=== PATIENT | female | born 1950 | race American Indian/Alaskan Native ===

== ENCOUNTER 2017-10-26 11:06 | Emergency (ER) | payer MEDICARE ==
[2017-10-26 12:17] LABS: Basophils # (Auto) 0.1 K/mm3 (0.0-0.1); Basophils % (Auto) 1.1 % (0.0-1.8); Eosinophils # (Auto) 0.2 K/mm3 (0.0-0.4); Eosinophils % (Auto) 3.2 % (0.0-4.3); Hematocrit 33.3 % (30.3-42.9); Hemoglobin 10.8 gm/dl (10.1-14.3); Lymphocytes # (Auto) 1.9 K/mm3 (1.2-5.4); Lymphocytes % (Auto) 38.5 % (13.4-35.0); Mean Corpuscular HGB Conc 33 % (30-34); Mean Corpuscular Hemoglobin 26 pg (28-32); Mean Corpuscular Volume 79 fl (79-97); Monocytes # (Auto) 0.4 K/mm3 (0.0-0.8); Monocytes % (Auto) 8.7 % (0.0-7.3); Platelet Count 222 K/mm3 (140-440); Red Blood Count 4.21 M/mm3 (3.65-5.03); Red Cell Distribution Width 16.8 % (13.2-15.2)
[2017-10-26 12:26] LABS: INR 0.87 (0.87-1.13)
[2017-10-26 12:27] LABS: Partial Thromboplastin Time 30.8 Sec. (24.2-36.6)
[2017-10-26 12:39] LABS: Calcium 8.9 mg/dL (8.4-10.2)
--- NOTE | 2017-10-26 13:39 | Cat Scan Report ---
FINAL REPORT EXAM: CT HEAD/BRAIN WO CON HISTORY: gait unsteady and dizziness with HTN and headache TECHNIQUE: CT of the head was performed. No intravenous contrast was administered. PRIORS: None. FINDINGS: There is no evidence of intracranial hemorrhage. There is no edema, mass effect or midline shift. There are no abnormal extra-axial fluid collections. The ventricles are appropriate for brain volume. There is no skull fracture seen. The visualized aspects of the sinuses are clear. IMPRESSION: There is no acute intracranial abnormality identified.
[2017-10-26 13:57] LABS: Chol/HDL Ratio 3.81 %
[2017-10-26] MEDS ORDERED: CATAPRES ONE (14:21)
[2017-10-26] MEDS ORDERED: CATAPRES PO ONE (14:28)
[2017-10-26] MEDS ORDERED: NORCO 5/325 PO ONE (14:57)
[2017-10-26] MEDS ORDERED: ANTIVERT PO ONE (14:57)
--- NOTE | 2017-10-26 15:03 | Emergency Department Report ---
HPI - General Chief Complaint: High BP Time Seen by Provider: 10/26/17 14:42 - HPI HPI: Room 9 The patient is a 67-year-old female presenting with a chief complaint of headache and dizziness. The patient states for the past 2-3 days she's had a constant occipital headache addition to dizziness mostly with walking. The patient states she felt as though her blood pressures been elevated for the past 2 days. The patient is to nausea but denies vomiting. The patient states she drove to [place] from [place] 10/16/2017. Patient denies chest pain or shortness of breath Location: [See above] Duration: [See above] Quality: Dizziness Severity: [See above] Modifying factors: [see above] Context: [see above] Mode of transportation: [not driving] ED Past Medical Hx - Past Medical History Previous Medical History?: Yes Hx Hypertension: Yes Hx CVA: Yes (TIA) Hx Diabetes: Yes Hx Renal Disease: Yes (Stage 4 kidney disease) Hx Arthritis: Yes - Surgical History Past Surgical History?: Yes Additional Surgical History: x1, Pituitary tumor remval, Cystocele and rectocele repair , Hysterectomy - Family History Family history: no significant - Social History Smoking Status: Never Smoker Substance Use Type: None (denies illicit drug use), Alcohol (rarely) - Medications Home Medications: Home Medications Medication Instructions Recorded Confirmed Last Taken Type amLODIPine [Norvasc] 5 mg PO DAILY #30 tab 10/26/17 Unknown Rx ED Review of Systems ROS: Stated complaint: HIGH BP Other details as noted in HPI Physical Exam - Physical Exam Vital Signs: Vital Signs 10/26/17 10/26/17 10/26/17 11:45 14:29 14:32 Temperature 97.9 F 98.6 F Pulse Rate 66 73 73 Respiratory 18 18 Rate Blood Pressure 239/112 239/116 Blood Pressure 239/116 [Right] O2 Sat by Pulse 100 100 Oximetry Physical Exam: GENERAL: The patient is well-developed well-nourished female lying on stretcher not appearing to be in acute distress. [] HEENT: Normocephalic. Atraumatic. Extraocular motions are intact. Patient has moist mucous membranes. NECK: Supple. Trachea midline CHEST/LUNGS: Clear to auscultation. There is no respiratory distress noted. HEART/CARDIOVASCULAR: Regular. There is no tachycardia. There is no gallop rub or murmur. ABDOMEN: Abdomen is soft, nontender. Patient has normal bowel sounds. There is no abdominal distention. SKIN: There is no rash. There is no edema. There is no diaphoresis. NEURO: The patient is awake, alert, and oriented. The patient is cooperative. The patient has no focal neurologic deficits. The patient has normal speech. Cranial nerves II through XII grossly intact, no drift. Supervisor Claims 5+/5 bilaterally MUSCULOSKELETAL: There is no evidence of acute injury. ED Course Vital Signs 10/26/17 10/26/17 10/26/17 11:45 14:29 14:32 Temperature 97.9 F 98.6 F Pulse Rate 66 73 73 Respiratory 18 18 Rate Blood Pressure 239/112 239/116 Blood Pressure 239/116 [Right] O2 Sat by Pulse 100 100 Oximetry - Reevaluation(s) Reevaluation #1: 10/26/17 17:13 Patient improved ED Medical Decision Making - Lab Data Result diagrams: 10/26/17 11:55 10/26/17 11:55 - EKG Data -: EKG Interpreted by Me EKG shows normal: sinus rhythm Rate: normal - EKG Data When compared to previous EKG there are: previous EKG unavailable Interpretation: normal EKG - Radiology Data Radiology results: report reviewed (CT head, VQ scan), image reviewed (CT head, chest x-ray, VQ scan) interpreted by me: Chest x-ray-no focal infiltrates, no pneumothorax [address] [address] Cat Scan Report Signed Patient: SHANNAN HURLEY MR#: [id number] : 1950 Acct:[id number] Age/Sex: 67 / F ADM Date: 10/26/17 Loc: ED Attending Dr: Ordering Physician: ED MD ADILENE Date of Service: 10/26/17 Procedure(s): CT head/brain wo con Accession Number(s): [id number] cc: ED MD ADILENE FINAL REPORT EXAM: CT HEAD/BRAIN WO CON HISTORY: gait unsteady and dizziness with HTN and headache TECHNIQUE: CT of the head was performed. No intravenous contrast was administered. PRIORS: None. FINDINGS: There is no evidence of intracranial hemorrhage. There is no edema, mass effect or midline shift. There are no abnormal extra-axial fluid collections. The ventricles are appropriate for brain volume. There is no skull fracture seen. The visualized aspects of the sinuses are clear. IMPRESSION: There is no acute intracranial abnormality identified. Transcribed By: MEY Dictated By: WHITNEY WADE MD Electronically Authenticated By: WHITNEY WADE MD Signed Date/Time: 10/26/17 1333 DD/ 1333 TD/TT: 10/26/17 1333 [facility] [address] [place] [address] Nuclear Medicine Report Signed Patient: SHANNAN HURLEY MR#: [id number] : 1950 Acct:[id number] Age/Sex: 67 / F ADM Date: 10/26/17 Loc: ED Attending Dr: Ordering Physician: ELDER JACKSON MD Date of Service: 10/26/17 Procedure(s): NM lung scan perf/vent Accession Number(s): [id number] cc: ELDER JACKSON MD Ventilation/perfusion lung scan: Elevated d-dimer, dizziness. Upright posterior imaging during ventilation demonstrates normal distribution of radionuclide throughout both lungs. Mild retention of activity is identified at the left lung base on washout images. Perfusion imaging in multiple projections demonstrates a normal distribution of radionuclide. Impression: No evidence of embolus. Nonspecific focal retention of ventilation activity at left lung base. Transcribed By: AWA Dictated By: EZ RODRIGUEZ MD Electronically Authenticated By: EZ RODRIGUEZ MD Signed Date/Time: 10/26/17 1630 DD/ 1629 TD/TT: 10/26/17 1630 - Differential Diagnosis hypertensive urgency, vertigo, PE Critical care attestation.: If time is entered above; I have spent that time in minutes in the direct care of this critically ill patient, excluding procedure time. ED Disposition Clinical Impression: Hypertensive urgency, Headache, Chronic renal insufficiency Disposition: -01 TO HOME OR SELFCARE Is pt being admited?: No Does the pt Need Aspirin: No Condition: Stable Instructions: Hypertension (ED) Additional Instructions: Return to the emergency department immediately should you develop worsening symptoms, fever, inability to tolerate food or liquid or any other concerns. Prescriptions: amLODIPine [Norvasc] 5 mg PO DAILY #30 tab Referrals: your primary physician, Christel [Other] - B[facility] Time of Disposition: 17:15
--- NOTE | 2017-10-26 16:42 | Nuclear Medicine Report ---
Ventilation/perfusion lung scan: Elevated d-dimer, dizziness. Upright posterior imaging during ventilation demonstrates normal distribution of radionuclide throughout both lungs. Mild retention of activity is identified at the left lung base on washout images. Perfusion imaging in multiple projections demonstrates a normal distribution of radionuclide. Impression: No evidence of embolus. Nonspecific focal retention of ventilation activity at left lung base.
--- NOTE | 2017-10-26 16:56 | XRay Report ---
FINAL REPORT EXAM: XR CHEST 1V AP HISTORY: dizziness, elevated d-dimer TECHNIQUE: AP portable view of the chest PRIORS: None. FINDINGS: Lines, tubes, and devices: N/A Lungs and pleura: Trachea is normal in position. Lungs are clear of infiltrate, pleural effusion, vascular congestion, or pneumothorax. Cardiomediastinal silhouette: Cardiac and mediastinal silhouettes are unremarkable. Other: Bony structures are intact. IMPRESSION: No acute cardiopulmonary process seen.
[2017-10-26 17:33] VITALS: BP 143/75
== END 2017-10-26 17:58 | disposition home or self-care (01) ==
LOC: ED 11:06
DX: I16.0 Hypertensive urgency (principal); I12.9 Hypertensive chronic kidney disease with stage 1 through stage 4 chronic kidney disease, or unspecified chronic kidney disease; E11.22 Type 2 diabetes mellitus with diabetic chronic kidney disease; N18.4 Chronic kidney disease, stage 4 (severe); M19.90 Unspecified osteoarthritis, unspecified site; Z86.73 Personal history of transient ischemic attack (TIA), and cerebral infarction without residual deficits
CPT/HCPCS: 36415; 70450; 71045; 78582; 80048; 80061; 84484; 85025; 85379; 85610; 85670; 85730; 93005; 93010; 99284; A9540; A9558